=== PATIENT | female | born 1940 | race African-American/Black ===

== ENCOUNTER 2018-02-01 10:44 | Emergency (ER) | payer MEDICARE, MEDICAID, OTHER ==
[~2018-02-01] VITALS: Ht 172.7 cm; Wt 108.0 kg
[2018-02-01] MEDS ORDERED: SODIUM CHLORIDE 0.9% 1,000 ML IV ONE (10:52)
[2018-02-01] MEDS ORDERED: ONDANSETRON HCL 4MG/2ML VIAL IV STA (10:52)
[2018-02-01] MEDS ORDERED: ALTEPLASE 81 MG in BAG 1 EACH IV STA (10:57)
[2018-02-01] MEDS ORDERED: ALTEPLASE 100MG/VIAL IV STA (10:57)
[2018-02-01] MEDS ORDERED: ONDANSETRON HCL 4MG/2ML VIAL ONE (10:59)
[2018-02-01 11:03] LABS: BASOPHILS % 0.2 % (0.0-2.0); EOSINOPHILS % 0.2 % (0.0-5.0); HEMATOCRIT. 26.9 % (36.0-48.0); HEMOGLOBIN. 8.6 g/dL (12.0-16.0); MEAN CORPUSCULAR HEMOGLOBIN 22.7 pg (28.0-32.0); MEAN CORPUSCULAR VOLUME 70.8 fL (81.0-99.0); MEAN PLATELET VOLUME 8.7 fl (7.4-10.4); MONOCYTES % 10.4 % (2.0-8.0); NEUTROPHILS % 73.2 % (40.0-76.0); PLATELET 226 x1000/uL (130-400); RED CELL DISTRIBUTION WIDTH 17.4 % (11.6-14.6)
[2018-02-01 11:15] LABS: PARTIAL THROMBOPLASTIN TIME 27.5 sec (23.4-31.0); PROTHROMBIN TIME 10.9 sec (9.4-11.6)
[2018-02-01] MEDS ORDERED: LABETALOL 5MG/ML SYR 20 MG/4 ML SYRINGE IV PRN (11:15)
[2018-02-01] MEDS ORDERED: ONDANSETRON HCL 4MG/2ML VIAL IV ONE (11:15)
[2018-02-01 11:16] LABS: CHLORIDE 104 mEq/L (98-107)
[2018-02-01 11:24] LABS: ETHANOL BLOOD < 10 mg/dL
[2018-02-01] MEDS ORDERED: MORPHINE SULFATE 4 MG/ML CPJ (NOT FOR IM USE) IV ONE (11:45)
[2018-02-01] MEDS ORDERED: IOHEXOL-350 100 ML BOTTLE ONE (13:05)
[2018-02-01] MEDS ORDERED: CLOPIDOGREL 75MG TABLET PO ONE (13:45)
[2018-02-01 15:16] LABS: CLARITY URINE CLEAR (CLEAR); COLOR URINE YELLOW (YELLOW); KETONES URINE NEGATIVE (NEGATIVE); LEUKOCYTE ESTERASE URINE TRACE (NEGATIVE); NITRITE URINE NEGATIVE (NEGATIVE); OCCULT BLOOD URINE TRACE (NEGATIVE); PH URINE 7.5 (4.5-8.0); PROTEIN URINE NEGATIVE (NEGATIVE); SPECIFIC GRAVITY URINE 1.035 (1.005-1.030); UROBILINOGEN URINE 0.2 E.U./dL (0.2-1.0)
[2018-02-01 15:50] LABS: *AMPHETAMINES SCREEN URINE NEGATIVE (NEGATIVE); *BARBITURATES SCREEN URINE NEGATIVE (NEGATIVE); *BENZODIAZEPINES SCREEN URINE NEGATIVE (NEGATIVE); *COCAINE SCREEN URINE NEGATIVE (NEGATIVE)
[2018-02-01 15:51] LABS: CANNABINOID URINE SCREEN NEGATIVE (NEGATIVE); METHADONE URINE SCREEN NEGATIVE (NEGATIVE); OPIATES URINE SCREEN PRESUMTIVE POSITIVE (NEGATIVE); PHENCYCLIDINE URINE SCREEN NEGATIVE (NEGATIVE)
[2018-02-01 15:55] VITALS: BP 148/77
== END 2018-02-01 16:20 | disposition short-term general hospital (02) ==
LOC: ER 10:53
DX: I69.328 Other speech and language deficits following cerebral infarction (principal); I69.392 Facial weakness following cerebral infarction; G45.9 Transient cerebral ischemic attack, unspecified; R10.9 Unspecified abdominal pain; R11.10 Vomiting, unspecified; E11.9 Type 2 diabetes mellitus without complications; I10 Essential (primary) hypertension; Z88.8 Allergy status to other drugs, medicaments and biological substances
CPT/HCPCS: 36415; 70450; 70496; 70498; 71045; 74176; 80053; 80305; 81003; 82962; 83690; 84484; 85025; 85610; 85730; 86850; 86900; 86901; 87086; 93005; 96361; 96374; 96376; 99285; G0482; J2405; J7030; Q9967; J2270; J2997